=== PATIENT | female | born 1985 | race Caucasian/White ===

== ENCOUNTER 2018-03-07 19:28 | Emergency (ER) | payer OTHER ==
[~2018-03-07] VITALS: Ht 167.6 cm; Wt 72.6 kg
[~2018-03-07 19:28] MED LIST: AUGMENTIN1 TA2 PO; COL100 PO; CYCLOBENZAPRINE5 MG PO; ELA25 PO; LAC PO; NORCO1 TA2 PO; OXYCODONE HCL10 MG PO; OXYCODONE HYDRO10 M1 PO; PAN PO; PRI20 PO; ZOFRAN4 M2 PO
[2018-03-07 19:31] VITALS: Ht 167.6 cm; Wt 72.6 kg
[2018-03-07 20:12] LABS: microscopic required? NO
[2018-03-07 20:20] LABS: UA SPECIFIC GRAVITY >=1.030 (1.005-1.035); urine erythrocyte NEGATIVE (NEGATIVE)
[2018-03-07 20:36] LABS: BASOPHIL % 0.3 % (0-2); PLATELET COUNT 256 x10^3mcL (130-400); RED CELL DISTRIBUTION WIDTH 12.6 % (11.5-14.5)
[2018-03-07 20:55] LABS: CALCIUM 7.7 mg/dL (8.5-10.1); CARBON DIOXIDE 25.3 mmol/L (21-32); CHLORIDE SERUM 104 mmol/L (98-107); CREATININE SERUM 0.7 mg/dL (0.6-1.0); GFR1 > 60 mL/min; GLUCOSE SERUM 108 mg/dL (74-106); POTASSIUM SERUM 3.4 mmol/L (3.5-5.1); SODIUM SERUM 136 mmol/L (136-145)
[2018-03-07 20:59] LABS: ALBUMIN 3.9 g/dL (3.4-5.0); ALKALINE PHOSPHATASE 58 U/L (46-116); ALT/SGPT 71 U/L (14-59); AMYLASE 55 U/L (25-115); AST/SGOT 25 U/L (15-37); BILIRUBIN TOTAL 1.23 mg/dL (0.20-1.00); LIPASE 144 IU/L (73-393); TOTAL PROTEIN, SERUM 6.7 g/dL (6.4-8.2)
[2018-03-08 01:44] VITALS: BP 81/52
== END 2018-03-08 01:44 | disposition short-term general hospital (02) ==
LOC: ED 19:28
PROVIDERS: Emergency Medicine
DX: O00.80 Other ectopic pregnancy without intrauterine pregnancy (principal); O99.351 Diseases of the nervous system complicating pregnancy, first trimester; G43.909 Migraine, unspecified, not intractable, without status migrainosus; Z3A.01 Less than 8 weeks gestation of pregnancy; Z90.49 Acquired absence of other specified parts of digestive tract; Z87.19 Personal history of other diseases of the digestive system; Z98.82 Breast implant status
CPT/HCPCS: J1170; J3010

== ENCOUNTER 2018-12-23 22:05 | Inpatient (IN) | payer OTHER ==
[~2018-12-23] VITALS: Ht 167.6 cm; Wt 73.9 kg
[2018-12-23 22:08] VITALS: Ht 167.6 cm; Wt 73.9 kg
[2018-12-23 23:17] LABS: BASOPHIL % 0.1 % (0-2); PLATELET COUNT 291 x10^3mcL (130-400); RED CELL DISTRIBUTION WIDTH 12.9 % (11.5-14.5)
[2018-12-23 23:24] LABS: UA SPECIFIC GRAVITY >=1.030 (1.005-1.035); microscopic required? YES; urine erythrocyte TRACE (NEGATIVE)
[2018-12-23 23:42] LABS: CALCIUM 8.3 mg/dL (8.5-10.1); CHLORIDE SERUM 105 mmol/L (98-107); CREATININE SERUM 0.8 mg/dL (0.6-1.0); GFR1 > 60 mL/min; GLUCOSE SERUM 120 mg/dL (74-106); POTASSIUM SERUM 3.9 mmol/L (3.5-5.1); SODIUM SERUM 141 mmol/L (136-145)
[2018-12-23 23:47] LABS: ALBUMIN 4.2 g/dL (3.4-5.0); ALKALINE PHOSPHATASE 82 U/L (46-116); ALT/SGPT 79 U/L (14-59); AST/SGOT 31 U/L (15-37); BILIRUBIN TOTAL 0.8 mg/dL (0.20-1.00); TOTAL PROTEIN, SERUM 7.4 g/dL (6.4-8.2)
[2018-12-24] MEDS ORDERED: PHENTERMINE HYD30 MG (04:19)
[2018-12-24 06:00] VITALS: BP 144/81
[2018-12-24 07:25] VITALS: BP 110/62
[2018-12-24 12:57] VITALS: BP 110/62
[2018-12-24 16:31] VITALS: BP 107/72
[2018-12-24 20:24] VITALS: BP 122/64
[2018-12-25 08:39] VITALS: BP 104/68
[2018-12-25 10:32] VITALS: BP 110/62
[2018-12-25 10:35] VITALS: BP 110/62
== END 2018-12-25 15:13 | disposition home or self-care (01) | DRG 743 ==
LOC: ED 22:05 → MU 12-24 04:27
PROVIDERS: Emergency Medicine; Obstetrics & Gynecology; ADMIT Internal Medicine Nephrology
PROC: 0U910ZZ Drainage of Left Ovary, Open Approach (ICD-10-PCS; 2018-12-24)
PROC: 0UB10ZZ Excision of Left Ovary, Open Approach (ICD-10-PCS; principal; 2018-12-24 17:30)
DX: N83.202 Unspecified ovarian cyst, left side (principal); R19.09 Other intra-abdominal and pelvic swelling, mass and lump; Z90.49 Acquired absence of other specified parts of digestive tract; G43.909 Migraine, unspecified, not intractable, without status migrainosus; Z83.3 Family history of diabetes mellitus; Z83.49 Family history of other endocrine, nutritional and metabolic diseases
CPT/HCPCS: G0378; J0330; J0690; J0696; J1170; J1885; J2175; J2250; J2270; J2405; J2704; J2710; J3010; J3490; J7030; J7040; J7120; Q0092; Q9967

== ENCOUNTER 2018-12-30 14:36 | Emergency (ER) | payer OTHER ==
[~2018-12-30] VITALS: Ht 167.6 cm; Wt 75.3 kg
[~2018-12-30 14:36] MED LIST changes: +PHENTERMINE HYD30 MG
[2018-12-30 14:44] VITALS: Ht 167.6 cm; Wt 75.3 kg
[2018-12-30 16:28] LABS: BASOPHIL % 0.3 % (0-2); PLATELET COUNT 352 x10^3mcL (130-400); RED CELL DISTRIBUTION WIDTH 12.7 % (11.5-14.5)
[2018-12-30 16:37] LABS: CALCIUM 8.3 mg/dL (8.5-10.1); CARBON DIOXIDE 28.3 mmol/L (21-32); CHLORIDE SERUM 104 mmol/L (98-107); CREATININE SERUM 0.8 mg/dL (0.6-1.0); GFR1 > 60 mL/min; GLUCOSE SERUM 87 mg/dL (74-106); POTASSIUM SERUM 4.3 mmol/L (3.5-5.1); SODIUM SERUM 140 mmol/L (136-145)
[2018-12-30 16:42] LABS: ALBUMIN 4.2 g/dL (3.4-5.0); ALKALINE PHOSPHATASE 65 U/L (46-116); ALT/SGPT 115 U/L (14-59); AST/SGOT 55 U/L (15-37); BILIRUBIN TOTAL 2.26 mg/dL (0.20-1.00); LIPASE 115 IU/L (73-393)
[2018-12-30 16:49] LABS: microscopic required? NO
[2018-12-30 17:33] LABS: urine erythrocyte NEGATIVE (NEGATIVE)
[2018-12-30 18:31] VITALS: BP 114/76
[2018-12-31] MEDS ORDERED: HYDROCODONE BIT1 T49 PO (01:24)
== END 2018-12-30 18:31 | disposition home or self-care (01) ==
LOC: ED 14:36
PROVIDERS: Emergency Medicine
DX: R10.84 Generalized abdominal pain (principal); G43.909 Migraine, unspecified, not intractable, without status migrainosus; Z98.890 Other specified postprocedural states; Z90.49 Acquired absence of other specified parts of digestive tract; Z98.82 Breast implant status
CPT/HCPCS: J1885; J2405; J7030; Q9967

== ENCOUNTER 2018-12-30 22:56 | Inpatient (IN) | payer OTHER ==
[~2018-12-30] VITALS: Ht 167.6 cm; Wt 73.9 kg
[2018-12-30 22:59] VITALS: Ht 167.6 cm; Wt 73.9 kg
[2018-12-30 23:32] LABS: BASOPHIL % 0.3 % (0-2); PLATELET COUNT 394 x10^3mcL (130-400); RED CELL DISTRIBUTION WIDTH 13.1 % (11.5-14.5)
[2018-12-30 23:36] LABS: CALCIUM 9.1 mg/dL (8.5-10.1); CARBON DIOXIDE 28.9 mmol/L (21-32); CHLORIDE SERUM 104 mmol/L (98-107); GFR1 > 60 mL/min; GLUCOSE SERUM 135 mg/dL (74-106); POTASSIUM SERUM 4.2 mmol/L (3.5-5.1); SODIUM SERUM 142 mmol/L (136-145)
[2018-12-30 23:44] LABS: ALBUMIN 4.5 g/dL (3.4-5.0); ALKALINE PHOSPHATASE 76 U/L (46-116); ALT/SGPT 125 U/L (14-59); AST/SGOT 56 U/L (15-37); BILIRUBIN TOTAL 2.7 mg/dL (0.20-1.00); TOTAL PROTEIN, SERUM 7.7 g/dL (6.4-8.2)
--- NOTE | 2018-12-31 00:38 | NUR ---
PT RESTING IN BED, AAOX4 WITH C/O 10/10 LOWER ABD PAIN X 1 WEEK S/P ABD SX HERE FOR RUPTURED OVARIA CYST. PT WAS SEEN HERE EARLIER TODAY FOR THE SAME SYMPTOMS BUT WAS UNABLE TO FILL RX GIVEN. PT WITH HEALING ABD SX INCISIONS WITH NO SIGNS OF INFECTION AT THIS TIME. PT STATES SHE IS ALSO HAVING CONSTIPATION. PT DENIES ANY RESP ILLNESS OR URINARY PROBLEMS AT THIS TIME. PT REFUSING URINE SAMPLE AT THIS TIME STATING 'I WAS HERE EARLIER AND ALREADY GAVE URINE.' FAMILY AT BEDSIDE. PT PLACED ON MONTIOR.
[2018-12-31] MEDS ORDERED: HYDROCODONE BIT1 T49 PO (01:24)
--- NOTE | 2018-12-31 01:35 | NUR ---
PT STILL REFUSING TO GIVE URINE AT THIS TIME. PT AWARE OF RISKS OF MEDS WITH
--- NOTE | 2018-12-31 01:36 | NUR ---
REPORT GIVEN TO JOSÉ LUIS HERNANDEZ.
[2018-12-31 01:37] LABS: FREE T4 0.87 ng/dL (0.76-1.46); FREE THYROXINE INDEX 2.4 ug/dL (1.4-4.5); T4(THYROXINE) 6.6 ug/dL (4.7-13.3)
[2018-12-31 01:38] LABS: T3 TOTAL 0.69 ng/mL
--- NOTE | 2018-12-31 01:54 | NUR ---
PT COMPLAINING OF PAIN TO IV SITE IN RAC. IV REMOVED. NO SWELLING OR SIGNS OF INFILTRATION NOTED AT THIS TIME. NEW IV INITIATED TO R HAND. SEE IV DOCUMENTATION. PT REPORTS PAIN IS DOWN TO A 3 AT THIS TIME
--- NOTE | 2018-12-31 02:02 | NUR ---
PATIENT ARRIVED FROM ED VIA WHEELCHAIR ACCOMPANIED BY SISTER AND ED STAFF. GENERALIZED WEAKNESS DUE TO ABD CRAMPING PAIN. MORPHINE GIVEN IN ED. REPORTS PAIN 3/10, TOLERABLE. A.OX4, ABLE TO MAKE NEEDS KNOWN. DENIES GONZALEZ OR DIZZINES. DENIES CHEST PAIN/PRESSURE. BREATHING EVEN AND UNLABORED ON ROOM AIR. NO SOB OR RESP DISTRESS NOTED. IV TO THE RH, 20G. 1L NS BOLUS INFUSING. PATENT AND INTACT. NO REDNESS OR SWELLING NOTED. LOWER ABD HEALING SURGICAL INCISION (12CM) W/ SURROUNDING ECCHYMOSIS (PICTURES TAKEN). NKECHI. NO DRAINAGE OR S/S OF INFECTION. ORIENTED PATIENT TO CALL LIGHT SYSTEM, BED CONTROLS, AND ROOM. COMFORT AND SAFETY MEASURES IN PLACE. BED IS LOCKED AND IN THE LOWEST POSITION. SIDE RAILS UP X2. CALL LIGHT IS WITHIN REACH. WILL CONTINUE TO MONITOR.
[2018-12-31 02:23] VITALS: BP 136/83
[2018-12-31 05:04] VITALS: BP 126/78
--- NOTE | 2018-12-31 06:00 | NUR ---
RADIOLOGY CALLED ABOUT US ABD AND PELVIS. REPORTED THAT PATIENT MIST HAVE A FULL BLADDER FOR US PELVIS. PATIENT REPORTED THAT SHE JUST VOIDED AND HAD A LOOSE BM. PATIENT IS AWARE THAT BLADDER MUST BE FULL AND TO CALL WHEN BLADDER IS NEAR FULL.
--- NOTE | 2018-12-31 06:12 | NUR ---
C/O 6/10 ABD CRAMPING PAIN. PRN MORPHINE ADMINISTERED PRESCRIBED. TOLERATED WELL. EDUCATION GIVEN ON MED. VERBALIZED UNDERSTANDING. NO DISTRESS NOTED. BREATHING EVEN AND UNLABORED. CALL LIGHT WITHIN REACH. WILL CONTINUE TO MONITOR.
--- NOTE | 2018-12-31 06:30 | NUR ---
RESTED IN SHORT INTERVALS SINCE ARRIVAL FROM ED. NO ACUTE CHANGES NOTED. BREATHING EVEN AND UNLABORED. NO DISTRESS NOTED. C/O INTERMITTENT ABD CRAMPING THROUGHOUT THE NIGHT. PATIENT DESCRIBES IT TO BE SIMILAR CONTRACTIONS. IV TO THE RH INFUSING NS WELL. PATENT AND INTACT. NO REDNESS OR SWELLING NOTED. DENIES CHEST PAIN. SAFETY MEASURES IN PLACE. AWAITING US ABD AND PELVIS. CALL LIGHT IS WITHIN REACH. WILL ENDORSE CARE TO DAY SHIFT RN.
--- NOTE | 2018-12-31 07:45 | NUR ---
HAVING US ABD AT THIS TIME. BLADDER EMPTY WILL PERFORM US BLADDER WHEN BLADDER IS FULL.
--- NOTE | 2018-12-31 08:00 | NUR ---
ALERT AND ORIENTED. BREATHING FREELY ON RA. INTERMITTENT CRAMPING TO LOWER ABD. DENIES NEED FOR PAIN MED AT THIS TIME. LOWER ABD INCISION CLOSED WITH DERMABOND. ECCYMOTIC AREAS AROUND INCISION SITE. INDEPENDENT W ADLS. NPO FOR US PELVIS. WAITING FOR FULL BLADDER. CONSULTS ORDERED WITH DR. KELLOGG AND DR. Moraima RUBIO. CALL LIGHT WITHIN REACH. VSS NS INFUSING 100 CC HOUR.
[2018-12-31 09:20] VITALS: BP 116/78
[2018-12-31 16:20] VITALS: BP 124/78
[2018-12-31 16:27] LABS: UA SPECIFIC GRAVITY >=1.030 (1.005-1.035); microscopic required? YES; urine erythrocyte 2+ (NEGATIVE)
[2018-12-31 16:41] LABS: AMPHETAMINE QUAL UR NONE DETECTED (See below)
--- NOTE | 2018-12-31 16:56 | NUR ---
RECEIVED T.C. FROM DR. Moraima RUBIO. HE SAID FAR HE IS CONCERNED PT CAN GO HOME AMD SEE HIM IN HIS OFFICE NEXT WEEK. DR. RUBIO SPOKE WITH DR. BLUM. DR. BLUM SPOKE W/ REMY TOO SEE WHO WILL BE TAKING OVER PTS CARE.
--- NOTE | 2018-12-31 18:26 | NUR ---
LETHARGIC AND ORIENTED. POOR APPETITE WITH DINNER. C/O H/A AFTER RECEIVING TYLENOL AND ROXYCODONE. AMBULATED AROUND FLOOR WITH SISTER. FEELING A LITTLE BETTER. SAYS HER ABD FEELS A LITTLE MORE DISTENDED. DOES APPEAR MORE ROUND THAN THIS AM. CONTINUES ON NS 100 CC HOUR. STARTED ON REG DIET. CALL LIGHT WITHIN REACH.
[2018-12-31 19:20] VITALS: BP 115/71
--- NOTE | 2018-12-31 19:20 | NUR ---
RECEIEVD PT AWAKE ALERT AND VERBALLY RESPONSIVE WITH SISTER AT BEDSIDE.CONTINUE TO C/O HEADACHE 5/10 TO THROBBING PAIN.BP 115/71 MMHG,HR 76.S/P SURGERY 1 WEEK AGO FOR REPAIR LEFT OVARY RUPTURE.INCISION WITH DERMABOND AND PURPLISH DISCOLORATION AROUND SITE.MEDICATED WITH MORPHINE 2 MG IVP BY AM NURSE.COMFORT MEASURES RENDERED.WILL CONTINUE TO MONITOR.
--- NOTE | 2019-01-01 04:36 | NUR ---
PT SLEPT WELL ALL NIGHT.MEDICATED WITH TYLENOL 650 MG PO X1 FOR HEADACHE WITH GOOD RELIEF.DENIES ABDOMINAL CRAMPING.ALL NEEDS MET.WILL CONTINUE TO MONITOR.
[2019-01-01 04:47] VITALS: BP 103/57
[2019-01-01 06:50] LABS: BASOPHIL % 0.3 % (0-2); PLATELET COUNT 319 x10^3mcL (130-400); RED CELL DISTRIBUTION WIDTH 12.9 % (11.5-14.5)
[2019-01-01 07:02] LABS: CALCIUM 8.1 mg/dL (8.5-10.1); CARBON DIOXIDE 27.7 mmol/L (21-32); CHLORIDE SERUM 107 mmol/L (98-107); CREATININE SERUM 0.7 mg/dL (0.6-1.0); GFR1 > 60 mL/min; GLUCOSE SERUM 101 mg/dL (74-106); PHOSPHOROUS 3.2 mg/dL (2.5-4.9); POTASSIUM SERUM 3.9 mmol/L (3.5-5.1); SODIUM SERUM 142 mmol/L (136-145)
--- NOTE | 2019-01-01 07:52 | NUR ---
RECEIVED PATIENT FROM MARY DAVIS. PATIENT IN BED SLEEPING AT THIS TIME. NO SIGNS OF PAIN OR SOB. WILL CONTINUE TO MONITOR AND AWAIT CARE TEAM TO ARRIVE.
[2019-01-01 09:24] VITALS: BP 115/78
--- NOTE | 2019-01-01 10:48 | NUR ---
DR MALIK IN TO SPEAK W PATIENT, STATES SHE IS OK TO BE DISCHARGED TODAY. WILL AWAIT DISCHARGE ORDERS, PATIENT AGREES TO AFTERNOON DISCHARGE. CALL LIGHT IN REACH AT THIS TIME.
--- NOTE | 2019-01-01 12:02 | NUR ---
RECEIVED PATIENT FROM KAMILA HERNANDEZ AT THIS TIME. PATIENT IS IN BED WITH VISITOR AT BEDSIDE. PATIENT IS ALERT AND ORIENTED. NO C/O PAIN OR DISCOMFORT. AMBULATORY. CONDITIION APPEARS STABLE AT THIS TIME.
--- NOTE | 2019-01-01 12:36 | NUR ---
PATIENT IS READY FOR D/C HOME WITH SISTER. HL DC'D. PATIENT'S SISTER GIVEN D/C INSTRUCTIONS AND FOLLOW UP APPT. EDUCATION PROVIDED. PERSONAL BELONGINGS LIST SIGNED. CONDITION APPEARS STABLE. PATIENT APPEARS TO HAVE A VERY FLAT AFFECT.
[2019-01-01] MEDS ORDERED: KETOROLAC TROME10 MG PO (12:38)
[2019-01-01 12:44] VITALS: BP 115/78
[2019-01-01 13:16] LABS: ALBUMIN 3.4 g/dL (3.4-5.0); BILIRUBIN DIRECT 0.25 mg/dL (0.0-0.2)
--- NOTE | 2019-01-01 13:50 | NUR ---
PATIENT IS READY FOR D/C HOME. HL DC'D. PRESCRIPTION AND DISCHARGE INSTRUCTIONS GIVEN. PERSONAL BELONGINGS LIST SIGNED. OFF WORK NOTE GIVEN PATIENT REQUESTED BY DR MCGILL. CONDITION APPEARS STABLE.
== END 2019-01-01 13:55 | disposition home or self-care (01) | DRG 948 ==
LOC: ED 22:56 → MU 12-31 01:04
PROVIDERS: Internal Medicine Gastroenterology; ADMIT Internal Medicine
DX: G89.18 Other acute postprocedural pain (principal); G43.909 Migraine, unspecified, not intractable, without status migrainosus; R74.0 Nonspecific elevation of levels of transaminase and lactic acid dehydrogenase [LDH]; R10.30 Lower abdominal pain, unspecified; K59.03 Drug induced constipation; T40.695A Adverse effect of other narcotics, initial encounter; Y92.89 Other specified places as the place of occurrence of the external cause; Z90.49 Acquired absence of other specified parts of digestive tract; Z83.3 Family history of diabetes mellitus; Z82.49 Family history of ischemic heart disease and other diseases of the circulatory system
CPT/HCPCS: 84439; G0378; J1885; J2270; J2405; J7030; Q0092